=== PATIENT | male | born 1995 | race Hispanic/Latino ===

== ENCOUNTER 2020-11-23 22:40 | Emergency (ER) | payer OTHER ==
[2020-11-23] MEDS ORDERED: CLINDAMYCIN HCL 150 MG CAP ONE (23:11)
[2020-11-23] MEDS ORDERED: ACETAMINOPHEN 325 MG TAB ONE (23:11)
[2020-11-23] MEDS ORDERED: IBUPROFEN 200 MG TAB ONE (23:12)
== END 2020-11-23 23:22 | disposition home or self-care (01) ==
LOC: EDH 22:40
DX: L02.416 Cutaneous abscess of left lower limb (principal); Z72.0 Tobacco use

== ENCOUNTER 2022-09-13 10:54 | Emergency (ER) | payer OTHER ==
[~2022-09-13] VITALS: Ht 175.3 cm; Wt 112.5 kg
[2022-09-13 11:17] VITALS: BP 157/83
[2022-09-13] MEDS ORDERED: HYDR-3421 PO (11:28)
[2022-09-13] MEDS ORDERED: TERB250T89 PO (11:28)
== END 2022-09-13 11:39 | disposition home or self-care (01) ==
LOC: EDH 10:54
DX: B36.0 Pityriasis versicolor (principal); Z90.89 Acquired absence of other organs

== ENCOUNTER 2022-09-20 21:38 | Emergency (ER) | payer OTHER ==
[~2022-09-20] VITALS: Ht 175.3 cm; Wt 113.4 kg
[~2022-09-20 21:38] MED LIST: HYDR-3421 PO; TERB250T89 PO
[2022-09-20 22:14] VITALS: BP 140/67
[2022-09-20 23:59] LABS: BASOPHILS % (AUTO) 0.6 % (0.0-5.0); EOSINOPHILS % (AUTO) 2.8 % (0.0-8.0); HEMATOCRIT 45.1 % (42-54); MEAN CORPUSCULAR HEMOGLOBIN 30.8 pg (27.0-33.0); MEAN CORPUSCULAR HGB CONC 33.5 g/dL (32.0-36.0); MEAN CORPUSCULAR VOLUME 91.9 fL (79-99); NEUTROPHILS % (AUTO) 62.2 % (40.0-77.0); PLATELET COUNT (AUTO) 250 K/uL (130-400); RED BLOOD CELL COUNT(AUTO) 4.91 MIL/uL (4.50-6.20); RED CELL DISTRIBUTION WIDTH 12.8 % (11.0-15.5); WHITE BLOOD COUNT (AUTO) 10.3 K/uL (4.8-10.8)
[2022-09-21 00:05] LABS: CREATININE 0.9 mg/dL (0.5-1.5); POTASSIUM 3.8 mmol/L (3.5-5.1)
[2022-09-21 00:09] LABS: ALBUMIN 3.7 g/dL (3.5-5.0); TOTAL PROTEIN, SERUM 7.6 g/dL (6.0-8.3)
== END 2022-09-21 00:18 | disposition left against medical advice (07) ==
LOC: EDH 21:38
DX: R06.02 Shortness of breath (principal); Z53.21 Procedure and treatment not carried out due to patient leaving prior to being seen by health care provider
CPT/HCPCS: 36415; 80053; 83690; 85025; 99281

== ENCOUNTER 2022-12-07 16:12 | Emergency (ER) | payer OTHER ==
[~2022-12-07] VITALS: Ht 175.3 cm; Wt 122.9 kg
[2022-12-07 16:51] VITALS: BP 154/75
[2022-12-07] MEDS ORDERED: TERB30CR13 TP (19:28)
[2022-12-07] MEDS ORDERED: ITRA100C3 PO (19:28)
== END 2022-12-07 19:33 | disposition home or self-care (01) ==
LOC: EDH 16:12
DX: B36.0 Pityriasis versicolor (principal); R21 Rash and other nonspecific skin eruption; Z79.899 Other long term (current) drug therapy; Z90.89 Acquired absence of other organs

== ENCOUNTER 2023-06-04 09:47 | Emergency (ER) | payer OTHER ==
[~2023-06-04] VITALS: Ht 175.3 cm; Wt 122.5 kg
[~2023-06-04 09:47] MED LIST changes: +ITRA100C3 PO; +TERB30CR13 TP
[2023-06-04] MEDS ORDERED: IBUPROFEN 600 MG TABLET PO ONE (11:00)
[2023-06-04 12:20] VITALS: BP 125/66; PULSE 74; RESP 16; O2SAT 100
== END 2023-06-04 12:53 | disposition home or self-care (01) ==
LOC: EDH 09:47
DX: M51.86 Other intervertebral disc disorders, lumbar region (principal); M54.50 Low back pain, unspecified; Z79.899 Other long term (current) drug therapy; Z90.89 Acquired absence of other organs; Z98.890 Other specified postprocedural states
CPT/HCPCS: 72131

== ENCOUNTER 2023-10-17 02:01 | Emergency (ER) | payer BC, OTHER ==
[~2023-10-17] VITALS: Ht 175.3 cm; Wt 130.6 kg
[2023-10-17 02:57] VITALS: BP 145/65; PULSE 86; RESP 16; O2SAT 99
[2023-10-17] MEDS: ACETAMINOPHEN 500 MG TABLET PO ONE (03:04)
[2023-10-17] MEDS: CIPROFLOXACIN HCL 0.2%/HYDROCORT 1% 10 ML OTIC SUSP OTIC ONE (03:05)
[2023-10-17] MEDS ORDERED: IBUP-2077 PO (03:06)
[2023-10-17] MEDS ORDERED: CIPR7.5D7 OT (03:06)
== END 2023-10-17 03:23 | disposition home or self-care (01) ==
LOC: EDH 02:01
DX: H60.502 Unspecified acute noninfective otitis externa, left ear (principal); Z79.899 Other long term (current) drug therapy; Z90.89 Acquired absence of other organs; Z98.890 Other specified postprocedural states

== ENCOUNTER 2023-11-29 16:28 | Emergency (ER) | payer BC ==
[~2023-11-29] VITALS: Ht 175.3 cm; Wt 129.3 kg
[~2023-11-29 16:28] MED LIST changes: +CIPR7.5D7 OT; +IBUP-2077 PO
[2023-11-29 16:40] VITALS: BP 154/84; PULSE 75; RESP 18; O2SAT 98
[2023-11-29] MEDS ORDERED: CLIN-141 PO (17:27)
[2023-11-29] MEDS ORDERED: NAPR375T6 PO (17:27)
[2023-11-29] MEDS: KETOROLAC 60 MG VIAL (30MG/ML) IM ONE (17:31)
== END 2023-11-29 17:38 | disposition home or self-care (01) ==
LOC: EDH 16:28
DX: K01.1 Impacted teeth (principal); Z79.899 Other long term (current) drug therapy
CPT/HCPCS: 99283; 96372; J1885

== ENCOUNTER 2024-03-09 11:11 | Emergency (ER) | payer BC ==
[~2024-03-09] VITALS: Ht 175.3 cm; Wt 122.5 kg
[~2024-03-09 11:11] MED LIST changes: +CLIN-141 PO; +NAPR375T6 PO
[2024-03-09 11:50] LABS: BASOPHILS # (AUTO) 0.05 K/uL (0.00-0.20); BASOPHILS % (AUTO) 0.6 % (0.0-5.0); EOSINOPHILS # (AUTO) 0.15 K/uL (0.00-0.70); EOSINOPHILS % (AUTO) 1.8 % (0.0-8.0); HEMATOCRIT 47.3 % (42-54); IMMATURE GRANULOCYTE ABSOLUTE 0.05 K/uL (0-1); LYMPHOCYTES # (AUTO) 2.1 K/uL (1.0-4.8); LYMPHOCYTES % (AUTO) 24.1 % (21.0-51.0); MEAN CORPUSCULAR HEMOGLOBIN 30.7 pg (27.0-33.0); MEAN CORPUSCULAR HGB CONC 33.8 g/dL (32.0-36.0); MEAN CORPUSCULAR VOLUME 90.8 fL (79-99); MONOCYTES # (AUTO) 0.8 K/uL (0.1-1.0); MONOCYTES % (AUTO) 9.1 % (3.0-13.0); NEUTROPHILS # (AUTO) 5.4 K/uL (1.8-7.7); NEUTROPHILS % (AUTO) 63.8 % (40.0-77.0); PLATELET COUNT (AUTO) 281 K/uL (130-400); RED BLOOD CELL COUNT(AUTO) 5.21 MIL/uL (4.50-6.20); WHITE BLOOD COUNT (AUTO) 8.5 K/uL (4.8-10.8)
[2024-03-09 12:09] LABS: CREATININE 0.9 mg/dL (0.5-1.3); POTASSIUM 3.9 mmol/L (3.5-5.1)
[2024-03-09 12:09] LABS: APPEARANCE,URINE CLEAR (CLEAR); BILIRUBIN,URINE NEGATIVE (NEGATIVE); COLOR,URINE YELLOW (YELLOW); GLUCOSE, URINE (UA) NEGATIVE (NEGATIVE); KETONES,URINE NEGATIVE (NEGATIVE); LEUKOCYTE ESTERASE ,URINE NEGATIVE Leu/uL (NEGATIVE); NITRATE,URINE NEGATIVE (NEGATIVE); OCCULT BLOOD,URINE NEGATIVE (NEGATIVE); PH,URINE 5.5 (5.0-8.0); PROTEIN,URINE 10 mg/dL (NEGATIVE); UROBILINOGEN,URINE 0.2 mg/dL (0.2-1.0)
[2024-03-09 12:14] LABS: ALBUMIN 3.7 g/dL (3.5-5.0); BILIRUBIN,TOTAL 0.8 mg/dL (0.2-1.0); TOTAL PROTEIN, SERUM 7.9 g/dL (6.0-8.3)
[2024-03-09 12:31] LABS: ADD UA MICROSCOPIC YES
[2024-03-09 12:32] LABS: MUCUS,URINE RARE LPF (None Seen); RBC,URINE 0-1 /HPF (0-1); SQUAMOUS EPITHELIAL CELL,UR RARE /HPF (0-2)
[2024-03-09] MEDS: ondanSETRON 4MG INJ IVP ONE (13:41)
[2024-03-09] MEDS: ketOROlac 30MG VIAL (30MG/ML) IVP ONE (13:42)
[2024-03-09] MEDS ORDERED: ONDA-243 PO (14:22)
[2024-03-09] MEDS ORDERED: PANT40TA PO (14:22)
[2024-03-09] MEDS: PANTOPrazole 40 MG/VIAL IVP ONE (15:11)
[2024-03-09 15:28] VITALS: BP 129/82; PULSE 98; RESP 18; TEMP 98.1; O2SAT 98
== END 2024-03-09 15:29 | disposition home or self-care (01) ==
LOC: EDH 11:11
DX: A05.9 Bacterial foodborne intoxication, unspecified (principal); K52.9 Noninfective gastroenteritis and colitis, unspecified; K76.0 Fatty (change of) liver, not elsewhere classified; R74.01 Elevation of levels of liver transaminase levels; R74.8 Abnormal levels of other serum enzymes; Z79.899 Other long term (current) drug therapy; Z90.89 Acquired absence of other organs
CPT/HCPCS: 99284; 96374; 76705; 96375; 80053; 83690; 85025; 81001; 36415; J2405; J1885; J2470